=== PATIENT | female | born 1945 | race African-American/Black ===

== ENCOUNTER → 2021-10-02 | Outpatient (CLI) | payer MEDICARE ==
[~2021-10-02] MED LIST: DOXAZOSIN MESYLA2 MG PO; HYDRALAZINE HCL25 MG PO; LISINOPRIL; METOPROLOL; METOPROLOL TART25 MG PO; SIMVASTATIN; Z.0.NEXIUM40 MG PO; Z.0.PLAVIX75 MG PO; ZOCOR40 MG PO; ZOLPIDEM
== END ==
LOC: US 10:41
PROVIDERS: ATTEND Internal Medicine Nephrology
DX: N18.32 Chronic kidney disease, stage 3b (principal)
CPT/HCPCS: 76770; 76857

== ENCOUNTER 2022-03-16 10:36 | Emergency (ER) | payer MEDICARE ==
[~2022-03-16] VITALS: Ht 165.1 cm; Wt 72.6 kg
[2022-03-16] MEDS ORDERED: KETOROLAC TROMETHAMINE 30 MG/ML VIAL IM STA (11:03)
[2022-03-16] MEDS ORDERED: DEXAMETHASONE 4 MG TAB PO STA (11:03)
[2022-03-16] MEDS ORDERED: HYDROCODONE/APAP 5MG-325MG TAB PO ONE (11:15)
== END 2022-03-16 12:50 | disposition home or self-care (01) ==
LOC: ER 10:45
DX: M25.511 Pain in right shoulder (principal); M79.621 Pain in right upper arm; M79.604 Pain in right leg; I10 Essential (primary) hypertension
CPT/HCPCS: 99282; J1885; J8540